=== PATIENT | male | born 2000 | race Caucasian/White ===

== ENCOUNTER 2024-03-27 01:05 | Emergency (ER) | payer MEDICAID ==
[~2024-03-27 01:05] MED LIST: Rocuronium 50 MG/5 ML Vial ONE
[2024-03-27] MEDS ORDERED: fentaNYL 100 MCG/2 ML SDV ONE (01:12)
[2024-03-27] MEDS ORDERED: Midazolam 1 MG/ML 5 ML SDV ONE (01:12)
[2024-03-27] MEDS: Etomidate 2 MG/ML 10 ML SDV IVPUSH ONE (01:15)
[2024-03-27] MEDS: Rocuronium 50 MG/5 ML Vial IVPUSH ONE (01:15)
[2024-03-27] MEDS: Midazolam 1 MG/ML 2 ML SDV IVPUSH ONE (01:17)
[2024-03-27] MEDS ORDERED: Sodium Chloride 0.9% 1,000 ML IV ONE ×2 (01:19→01:48)
[2024-03-27] MEDS: fentaNYL 50 MCG/ML SDV IVPUSH ONE (01:25)
[2024-03-30 14:49] LABS: BASOPHILS ABSOLUTE AUTO 0.03 K/uL (0.00-0.10); BASOPHILS PERCENT AUTO 0.4 % (0.1-1.3); EOSINOPHILS ABSOLUTE AUTO 0.04 K/uL (0.00-0.40); EOSINOPHILS PERCENT AUTO 0.5 % (0.0-5.4); HEMATOCRIT 43.3 % (38.4-49.7); HEMOGLOBIN 13.8 g/dL (12.9-16.9); IMMATURE GRAN ABSOLUTE AUTO 0.09 K/uL (0.00-0.23); IMMATURE GRAN PERCENT AUTO 1.1 % (0.0-0.7); LYMPHOCYTES ABSOLUTE AUTO 4.01 K/uL (0.8-3.3); LYMPHOCYTES PERCENT AUTO 47.7 % (11.4-47.7); MEAN CORPUSCULAR HEMOGLOBIN 31.4 pg (31.6-35.5); MEAN CORPUSCULAR HGB CONC 31.9 g/dL (31.6-35.5); MEAN CORPUSCULAR VOLUME 98.6 fL (81.4-99.0); MONOCYTES ABSOLUTE AUTO 0.49 K/uL (0.20-0.90); MONOCYTES PERCENT AUTO 5.8 % (3.3-12.6); NEUTROPHILS ABSOLUTE AUTO 3.75 K/uL (1.0-7.6); NEUTROPHILS PERCENT AUTO 44.5 % (40.0-78.1); PLATELET COUNT,PLT 231 K/uL (130-375); RED BLOOD CELL COUNT 4.39 M/uL (4.14-5.76); WHITE BLOOD CELL COUNT,WBC 8.4 K/uL (3.2-11.0)
== END 2024-03-27 02:00 ==
LOC: MERGE 01:05 → JP.ED 01:05
DX: S71.101A Unspecified open wound, right thigh, initial encounter (principal); T79.4XXA Traumatic shock, initial encounter; R40.1 Stupor; Z99.11 Dependence on respirator [ventilator] status; W34.00XA Accidental discharge from unspecified firearms or gun, initial encounter
CPT/HCPCS: 31500; 36415; 36430; 71045; 85025; 86850; 86900; 86901; 86920; 86922; 96361; 96374; 99285; 99291; G0390; J2250; J3010; J3490; P9016